=== PATIENT | female | born 1970 | race Caucasian/White ===

== ENCOUNTER 2016-10-10 18:28 | Emergency (ER) | payer MEDICAID, OTHER, SELFPAY ==
[~2016-10-10] VITALS: Ht 167.6 cm; Wt 67.2 kg
[~2016-10-10 18:28] MED LIST: AMOX500C2 PO; CIPR-278 PO; DOCU-119 PO; METF500T4 PO; RANI150C PO; VICOT PO
[2016-10-10 19:10] VITALS: BP 148/78
[2016-10-10] MEDS ORDERED: HYDROCODONE/ACETAMINOPHEN 5-325 MG TABLET PO ONE (19:45)
[2016-10-10] MEDS ORDERED: SULFAMETHOX/TRIMETH DS 800-160 MG/TABLET PO ONE (20:15)
[2016-10-10] MEDS ORDERED: LIDOCAINE HCL/PF 1% 2 ML VIAL IM ONE (20:15)
[2016-10-10] MEDS ORDERED: CefTRIAXone SODIUM 1 GM/VIAL IM ONE (20:15)
[2016-10-10] MEDS ORDERED: POVIDONE-IODINE 10% 120 ML SOLUTION TP ONE (20:30)
[2016-10-10] MEDS ORDERED: PERTUSS(ACELL),DIPH,TET VAC/PF 0.5 ML VIAL IM ONE (20:30)
[2016-10-10] MEDS ORDERED: BACITRACIN 0.9 GM PACKET OINTMENT TP ONE (20:30)
== END 2016-10-10 21:41 | disposition home or self-care (01) ==
LOC: EMS 18:36
DX: S61.432A Puncture wound without foreign body of left hand, initial encounter (principal); L03.114 Cellulitis of left upper limb; E11.65 Type 2 diabetes mellitus with hyperglycemia; W22.8XXA Striking against or struck by other objects, initial encounter; Y93.89 Activity, other specified; Y92.89 Other specified places as the place of occurrence of the external cause; Y99.8 Other external cause status
CPT/HCPCS: 73130; 90471; 90715; 96372; 99284; J0696; J3490; 82962

== ENCOUNTER 2022-07-27 22:55 | Emergency (ER) | payer OTHER ==
[~2022-07-27] VITALS: Ht 160 cm; Wt 70.0 kg
[2022-07-27] MEDS ORDERED: METF-1211 PO (23:02)
[2022-07-28] MEDS ORDERED: LIDOCAINE 1% 10 ML VIAL SQ ONE (00:15)
[2022-07-28] MEDS ORDERED: BACITRACIN 0.9 GM PACKET OINTMENT TP ONE (00:15)
[2022-07-28 00:30] VITALS: BP 129/77
== END 2022-07-28 02:03 | disposition home or self-care (01) ==
LOC: EMS 23:00
DX: S61.211A Laceration without foreign body of left index finger without damage to nail, initial encounter (principal); E11.9 Type 2 diabetes mellitus without complications; E78.00 Pure hypercholesterolemia, unspecified; I10 Essential (primary) hypertension; W45.8XXA Other foreign body or object entering through skin, initial encounter; Y93.89 Activity, other specified; Y92.89 Other specified places as the place of occurrence of the external cause; Y99.0 Civilian activity done for income or pay
CPT/HCPCS: 12002; 99282; Z7502